=== PATIENT | male | born 1940 ===

== ENCOUNTER 2018-11-16 08:46 | Day surgery (SDC) | payer MEDICARE, SELFPAY ==
[2018-11-16 09:28] VITALS: BP 119/66; PULSE 71; RESP 15; TEMP 36.5; O2SAT 94; BMI 24.9
[2018-11-16] MEDS: PROPARACAINE 0.5% OPHTH SOL 2 DROPS EYE-OP (09:28)
[2018-11-16] MEDS: CATARACT EYE COMPOUND (10 DROPS/SYRINGE) 3 DROPS EYE-OP (09:30)
--- NOTE | 2018-11-16 10:44 | PM.PREOP ---
Pre-operative Note Interval Note History & Physical reviewed/Exam performed by Physician: No Changes to H&P: No
--- NOTE | 2018-11-16 10:44 | PM.OP.1 ---
Operative Date/Time/Diagnoses Pre-op diagnosis: Nuclear cataract right eye Procedure & Clinicians Procedure: Cataract Surgery Same procedure as scheduled: Yes Surgeon: Thor Pal Anesthesia Type: MAC +/- and Sedation Operative Notes Procedure in detail: Patient brought to the operating suite. Tetracaine drops placed in the right eye. Patient was prepped and draped in sterile manner. Wire lid speculum was placed in the eye. Betadine drops were placed on the eye. This was irrigated. Lidocaine jelly was placed on the eye. A paracentesis port was created with a side-port blade. 0.1 mL 1% preservative free lidocaine was injected into the anterior chamber. The anterior chamber was deepened with viscoelastic. 2.6 mm keratome was used to create a temporal clear corneal incision. Cystotome and Utrata forceps were used to create continuous tear capsulorrhexis. Balanced salt solution was used to hydro dissect the nucleus. The phacoemulsification handpiece was inserted and the nucleus was removed using the stop and chop technique. The irrigation aspiration handpiece was inserted and the remaining cortex was removed. Anterior chamber was deepened with viscoelastic. An Stone ZCB00 intraocular lens with a power of 21.0 was injected into the capsular bag. Irrigation aspiration handpiece was inserted and the remaining viscoelastic was removed. Incision was hydrated with balanced salt solution and found to be leak free with pressure with Weck-Heather sponges. 0.1 mL Vigamox injected anterior chamber. 0.3 mL Kenalog 10 mg was injected subconjunctivally. Lid speculum was removed. The patient left the operating room in excellent condition. Complications: none Condition: stable Disposition: same day surgery
[2018-11-16] MEDS: PHENYLEPHRINE/LIDOCAINE VIAL (OR) 0.2 ML EYE-OP (11:04)
[2018-11-16] MEDS: TRIAMCINOLONE 50 MG/5 ML VIAL INJ (11:05)
[2018-11-16] MEDS: BALANCED SALT IRRIG SOLN NO.2 500 ML, EPINEPHrine 1 MG IRR (11:05)
[2018-11-16] MEDS: CHONDROIDTIN/SOD HYALURONATE 1.05 ML SYRINGE INTRAOCULA (11:05)
[2018-11-16] MEDS: LIDOCAINE JELLY 2% 5 ML 1 APPLIC TOP (11:05)
[2018-11-16] MEDS: TETRACAINE 0.5% OPHTH DROPS 4 ML 2 DROPS EYE-OP (11:05)
[2018-11-16] MEDS: MOXIFLOXACIN OPHTH DROPS 3 ML BOTTLE 2 DROPS INJ (11:06)
[2018-11-16 11:15] VITALS: BP 114/68; PULSE 89; RESP 16; TEMP 36.2; O2SAT 98
[2018-11-16 11:28] VITALS: BP 111/68; PULSE 82; RESP 18; O2SAT 96
== END 2018-11-16 11:40 ==
LOC: OR 08:49
PROVIDERS: PCP Family Medicine; Visit Provider Ophthalmology
PROC: (CPT 66984; principal; 2018-11-16 10:45)
DX: H25.11 Age-related nuclear cataract, right eye (principal); E11.9 Type 2 diabetes mellitus without complications; Z79.84 Long term (current) use of oral hypoglycemic drugs
CPT/HCPCS: 66984; J0171; J2250; J3010; J3301

== ENCOUNTER 2019-11-25 21:51 | Emergency (ER) | payer MEDICARE, SELFPAY ==
[2019-11-25 22:04] VITALS: BP 153/74; PULSE 84; RESP 16; TEMP 36.7; O2SAT 95; BMI 25.7
[2019-11-25] MEDS: TET,DIPH,PERTUSS(ACELL),VAC/PF 0.5 ML SYRINGE IM (23:01)
[2019-11-25] MEDS: LIDO 1%/SOD BICARB 8.4% (10ML) 10 ML SYRINGE INJ (23:01)
--- NOTE | 2019-11-25 23:32 | ED_ITS ---
HPI - Wound/Laceration General Chief Complaint: Wound/Laceration Stated Complaint: cut middle finger of left hand Time Seen by Provider: 11/25/19 23:31 Source: patient Mode of arrival: Family Vehicle Limitations: no limitations History of Present Illness HPI narrative: The patient was mowing grass at his home about 6:00 p.m.. He snagged his left 3rd finger on a piece of wire jutting out from a fence. He sustained a laceration to the dorsal proximal left 3rd finger. He has full range of motion the finger. There is no obvious contamination. He has no numbness or weakness in the finger. There is no active bleeding. He has no other injuries. He is right-hand dominant. His last tetanus is greater than 10 years ago Related Data Home Medications Medication Instructions Recorded Confirmed OMEGA-3 FATTY ACIDS (FISH OIL) 2,000 mg PO BID #0 01/21/16 cholecalciferol (vitamin D3) 2,000 unit PO Q DAY #0 01/21/16 [Vitamin D3] metformin 500 mg PO BID 11/16/18 11/16/18 Previous Rx's Medication Instructions Recorded albuterol sulfate [Proventil HFA] 2 puff INH Q4HP PRN #1 inh 05/12/16 zoster vaccine live (PF) [Zostavax 0.5 ml SQ STAT #1 ml 07/24/16 (PF)] Allergies Allergy/AdvReac Type Severity Reaction Status Date / Time lisinopril Allergy Mild WEAKNESS,SY Unverified 10/07/17 12:30 NCOPE Review of Systems Review of Systems ROS Unobtainable: All systems reviewed & are unremarkable except as noted in HPI and below Constitutional Constitutional: Denies chills, Denies fever(s), Denies lethargy and Denies weakness Comments: No recent illness Musculoskeletal Musculoskeletal: Denies numbness Comments: Left 3rd finger laceration as noted in HPI. Integumentary/Breasts Skin/Breast: Denies pruritus, Denies erythema, Denies rash and Reports wounds Neurologic Neurologic: Denies numbness and Denies weakness Patient History Surgical History History of knee replacement Social History household members: none Smoking Status: Current some day smoker Smoking Status: Current some day smoker alcohol intake frequency: a few times a month Substance Use Type: does not use Exam Initial Vital Signs Initial Vital Signs: Vital Signs Temperature 98.1 F 11/25/19 22:04 Pulse Rate 84 11/25/19 22:04 Respiratory Rate 16 11/25/19 22:04 Blood Pressure 153/74 H 11/25/19 22:04 Pulse Oximetry 95 11/25/19 22:04 Const General: cooperative and well developed Nutritional Appearance: well nourished Skin Rashes: no rashes Other: 1.5 cm left 3rd finger laceration the laceration is transverse, across the proximal dorsal finger. He has normal flexion extension in the finger. Th ere is no foreign body in the lesion. There is no active bleeding. There is no obvious bony or tendon injury. Neuro General: alert and oriented x3 Other: Motor and sensory exam of the left hand is normal. Procedures Laceration Repair Laceration 1: Site: hand (Proximal dorsal Third finger) Side (If applicable): left Size (cm): 1.5 Description: linear Depth: simple, single layer Local Anesthetic: lidocaine 1% Amount of anesthesia used (mL): 1.5 Pre-repair: wound explored and irrigated extensively Skin layer closed with: nylon Size (cm): 5-0 Number of sutures: 2 Technique: simple, interrupted Course Course Course Narrative: The patient tolerated laceration repair without difficulty. His tetanus was updated. A bandage was placed by the patient's nurse. Orders Ordered: Discontinued Medications Diphtheria/Tetanus/Acell Pertussis (Adacel) 0.5 ml IM .ONCE ONE Stop: 11/25/19 22:50 Last Admin: 11/25/19 23:01 Dose: 0.5 ml Documented by: VANESSA Lidocaine/Sodium Bicarbonate (Buffered Lidocaine 10 Ml Syr) 10 ml INJ NOW ONE Stop: 11/25/19 22:53 Last Admin: 11/25/19 23:01 Dose: 10 ml Documented by: VANESSA Vital Signs Vital signs: Vital Signs - 8 hr 11/25/19 22:04 Temperature 98.1 F Pulse Rate 84 Respiratory Rate 16 Blood Pressure 153/74 H Pulse Oximetry 95 Discharge Plan Departure Patient Disposition: Home Clinical Impression: Laceration of left index finger w/o foreign body w/o damage to nail Qualifiers: Encounter type: initial encounter Qualified Code(s): S61.211A - Laceration without foreign body of left index finger without damage to nail, initial encounter Instructions: DI for Laceration Repair Activity Restrictions/Additional Instructions: Keep the bandage in place for 24 hours. After the bandages off, you may shower and clean the finger regularly. Went inside and resting, leave the wound uncovered. If active cover the wound. Follow-up with her doctor in 10 days for suture removal. Return to the ER as necessary. Prescriptions: No Action cholecalciferol (vitamin D3) [Vitamin D3] 2,000 UNIT capsule 2,000 unit PO Q DAY Qty: 0 RF: 0 OMEGA-3 FATTY ACIDS (FISH OIL) 2,000 mg PO BID Qty: 0 RF: 0 albuterol sulfate [Proventil HFA] 90 MCG/PUFF HFA aerosol inhaler 2 puff INH Q4HP PRNQty: 1 RF: 0 zoster vaccine live (PF) [Zostavax (PF)] 19,400 UNIT/0.65 ML suspension for reconstitution 0.5 ml SQ STAT Qty: 1 RF: 0 metformin 500 mg Tablet 500 mg PO BID RF: 0 Referrals: Cayden Medrano MD [Primary Care Provider] -
--- NOTE | 2019-11-26 00:04 | PC.NURSE ---
three stitches placed by provider, bacitracin applied and covered with bandaid.
[2019-11-26] MEDS: BACITRACIN OINT 0.9 GM PCKT 1 APPLIC TOP (00:06)
[2019-11-26 00:07] VITALS: BP 162/74; PULSE 69; RESP 15; O2SAT 97
== END 2019-11-26 00:08 | disposition home or self-care (01) ==
PROVIDERS: Emergency Provider Emergency Medicine; PCP Family Medicine
DX: S61.211A Laceration without foreign body of left index finger without damage to nail, initial encounter (principal); W45.8XXA Other foreign body or object entering through skin, initial encounter; Z23 Encounter for immunization
CPT/HCPCS: 12001; 90471; 99283; 99284; 90715